=== PATIENT | female | born 1985 | race Caucasian/White ===

== ENCOUNTER 2018-09-15 08:04 | Inpatient (IN) | payer MEDICAID ==
[~2018-09-15 08:04] MED LIST: EPHEDrine 25 MG/5 ML SYG
[2018-09-15] MEDS ORDERED: OXYTOCIN 30 UNITS/LR 500 ML IV ×2 (09:00→20:00)
[2018-09-15] MEDS ORDERED: METHYLERGONOVINE 0.2 MG INJ IM ×2 (09:00→20:00)
[2018-09-15] MEDS ORDERED: CARBOPROST 250 MCG INJ IM ×2 (09:00→20:00)
[2018-09-15] MEDS ORDERED: MISOPROSTOL 200 MCG TAB PR ×2 (09:00→20:00)
[2018-09-15 09:34] LABS: ADD MAN DIFF? NO
[2018-09-15 09:37] LABS: BASOPHIL # 0.1 10^3/ul (0.0-0.1); BASOPHILS % 0.5 % (0.0-2.0); EOSINOPHILS # 0.1 10^3/ul (0.0-0.5); EOSINOPHILS % 0.9 % (0.0-7.0); HEMATOCRIT 27.6 % (37.0-47.0); HEMOGLOBIN 8.7 g/dl (12.0-16.0); LYMPHOCYTES # 2.7 10^3/ul (0.8-2.9); LYMPHOCYTES % 29.1 % (15.0-51.0); MEAN CORPUSCULAR HEMOGLOBIN 21.2 pg (29.0-33.0); MEAN CORPUSCULAR HGB CONC 31.5 g/dl (32.0-37.0); MEAN CORPUSCULAR VOLUME 67.3 fl (82.0-101.0); MEAN PLATELET VOLUME 10.3 fl (7.4-10.4); MONOCYTE # 0.7 10^3/ul (0.3-0.9); MONOCYTES % 7.4 % (0.0-11.0); NEUTROPHIL # 5.7 10^3/ul (1.6-7.5); NEUTROPHILS % 61.7 % (39.0-77.0); PLATELET COUNT 301 10^3/UL (140-415); RED CELL DISTRIBUTION WIDTH 16.8 % (11.5-14.5)
[2018-09-15 09:37] LABS: WHITE BLOOD COUNT 9.3 10^3/ul (4.8-10.8)
[2018-09-15 09:56] LABS: INR 0.91; PARTIAL THROMBOPLASTIN TIME 30.3 Sec (23.0-35.0); PROTIME 12.4 Sec (11.9-14.9)
[2018-09-15] MEDS: LACTATED RINGER'S 1,000 ML IV ×2 (09:59→14:16)
[2018-09-15 10:25] LABS: HEPATITIS B SURFACE ANTIGEN NEGATIVE (NEGATIVE)
[2018-09-15] MEDS ORDERED: morphine SULFATE/PF (10 MG/10 ML) INJ (13:46)
[2018-09-15] MEDS ORDERED: MIDAZOLAM 1 MG/ML 2 ML INJ IV (14:30)
[2018-09-15] MEDS ORDERED: MIDAZOLAM 1 MG/ML 2 ML INJ (14:30)
[2018-09-15] MEDS ORDERED: NALBUPHINE HCL (10 MG/1 ML) INJ IV (14:30)
[2018-09-15] MEDS ORDERED: NALOXONE (0.4 MG/ML) INJ IV (14:30)
[2018-09-15] MEDS ORDERED: MEPERIDINE 25 MG INJ IV (14:30)
[2018-09-15] MEDS ORDERED: DIPHENHYDRAMINE 50 MG INJ IV ×2 (14:30)
[2018-09-15] MEDS ORDERED: ZOLPIDEM 5 MG TAB PO (14:30)
[2018-09-15] MEDS ORDERED: HYDROmorphONE 0.5 MG/0.5 ML SYG IV ×2 (14:30)
[2018-09-15] MEDS ORDERED: ONDANSETRON 4 MG INJ (14:31)
[2018-09-15] MEDS ORDERED: KETOROLAC 30 MG INJ (14:53)
[2018-09-15 14:57] LABS: RAPID PLASMA REAGIN NONREACTIVE (NR)
[2018-09-15] MEDS ORDERED: OXYTOCIN 10 UNIT INJ (15:03)
[2018-09-15] MEDS: ONDANSETRON 4 MG INJ IV (16:06)
[2018-09-15] MEDS: PROMETHAZINE (1.25 MG/ML) 5 ML CUP PO (17:18)
[2018-09-15] MEDS: OXYTOCIN 30 UNITS/LR 500 ML IV ×2 (17:24→21:36)
[2018-09-15] MEDS ORDERED: METOCLOPRAMIDE 10 MG INJ (17:34)
[2018-09-15] MEDS: METOCLOPRAMIDE 10 MG INJ IV (17:39)
[2018-09-15] MEDS: CEFAZOLIN 2 GM/50 ML (PMX) 50 ML IVPB (18:07)
[2018-09-15] MEDS: DEXTROSE 5%-LR 1,000 ML IV (19:53)
[2018-09-15] MEDS ORDERED: LANOLIN HPA 1 PKT TOP (20:00)
[2018-09-15] MEDS ORDERED: METHYLERGONOVINE 0.2 MG TAB PO (20:00)
[2018-09-15] MEDS ORDERED: MAGNESIUM HYDROXIDE 30ML CUP PO (20:00)
[2018-09-15] MEDS: SENNA/DOCUSATE NA (8.6MG/50MG) TAB PO (21:00)
[2018-09-16 06:52] LABS: ADD MAN DIFF? NO
[2018-09-16] MEDS: KETOROLAC 30 MG INJ IV (06:54)
[2018-09-16] MEDS: DEXTROSE 5%-LR 1,000 ML IV ×2 (06:55→11:53)
[2018-09-16 06:57] LABS: WHITE BLOOD COUNT 10.5 10^3/ul (4.8-10.8)
[2018-09-16 06:57] LABS: BASOPHILS % 0.4 % (0.0-2.0); EOSINOPHILS # 0.1 10^3/ul (0.0-0.5); EOSINOPHILS % 0.9 % (0.0-7.0); HEMATOCRIT 24.1 % (37.0-47.0); HEMOGLOBIN 7.5 g/dl (12.0-16.0); LYMPHOCYTES # 1.8 10^3/ul (0.8-2.9); LYMPHOCYTES % 17.4 % (15.0-51.0); MEAN CORPUSCULAR HEMOGLOBIN 21.4 pg (29.0-33.0); MEAN CORPUSCULAR HGB CONC 31.1 g/dl (32.0-37.0); MEAN CORPUSCULAR VOLUME 68.7 fl (82.0-101.0); MEAN PLATELET VOLUME 10.5 fl (7.4-10.4); MONOCYTE # 0.8 10^3/ul (0.3-0.9); MONOCYTES % 7.5 % (0.0-11.0); NEUTROPHIL # 7.7 10^3/ul (1.6-7.5); NEUTROPHILS % 73.2 % (39.0-77.0); PLATELET COUNT 263 10^3/UL (140-415); RED BLOOD COUNT 3.51 10^6/ul (4.20-5.40); RED CELL DISTRIBUTION WIDTH 16.4 % (11.5-14.5)
[2018-09-16] MEDS: SENNA/DOCUSATE NA (8.6MG/50MG) TAB PO ×2 (09:20→21:00)
[2018-09-16] MEDS: HYDROCODONE/APAP (5/325) TAB NGT ×2 (15:04→18:57)
[2018-09-16] MEDS: HYDROCODONE/APAP (5/325) TAB GTB (21:50)
[2018-09-16] MEDS: IBUPROFEN 800 MG TAB PO (21:51)
[2018-09-17] MEDS: IBUPROFEN 800 MG TAB PO ×3 (05:35→21:59)
[2018-09-17] MEDS: HYDROCODONE/APAP (5/325) TAB GTB ×3 (05:36→21:58)
[2018-09-17 06:51] LABS: ADD MAN DIFF? NO
[2018-09-17 06:54] LABS: WHITE BLOOD COUNT 11.1 10^3/ul (4.8-10.8)
[2018-09-17 06:54] LABS: ABNORMAL IP MESSAGE 1; BASOPHILS % 0.4 % (0.0-2.0); EOSINOPHILS # 0.3 10^3/ul (0.0-0.5); EOSINOPHILS % 2.8 % (0.0-7.0); HEMATOCRIT 21.9 % (37.0-47.0); LYMPHOCYTES # 2.9 10^3/ul (0.8-2.9); LYMPHOCYTES % 26.2 % (15.0-51.0); MEAN CORPUSCULAR HEMOGLOBIN 21.5 pg (29.0-33.0); MEAN CORPUSCULAR HGB CONC 31.5 g/dl (32.0-37.0); MEAN CORPUSCULAR VOLUME 68.2 fl (82.0-101.0); MEAN PLATELET VOLUME 10.2 fl (7.4-10.4); MONOCYTE # 0.8 10^3/ul (0.3-0.9); MONOCYTES % 7.4 % (0.0-11.0); NEUTROPHILS % 62.5 % (39.0-77.0); PLATELET COUNT 271 10^3/UL (140-415); RED BLOOD COUNT 3.21 10^6/ul (4.20-5.40); RED CELL DISTRIBUTION WIDTH 16.5 % (11.5-14.5)
[2018-09-17 07:03] LABS: POSITIVE DIFF @See below
[2018-09-17 07:06] LABS: HEMOGLOBIN 6.9 g/dl (12.0-16.0)
[2018-09-17] MEDS: FERROUS SULFATE (EC) 325 MG TAB PO ×3 (08:38→20:52)
[2018-09-17] MEDS: SENNA/DOCUSATE NA (8.6MG/50MG) TAB PO ×2 (08:38→20:52)
[2018-09-17 09:11] LABS: IRON 24 ug/dl (35-150)
[2018-09-17 09:21] LABS: % IRON SATURATION 5 % SAT (22-52); TOTAL IRON BINDING CAPACITY 459 ug/dl (241-421)
[2018-09-17 09:48] LABS: FERRITIN 9.9 ng/ml (6.2-137.0)
[2018-09-17] MEDS: CYANOCOBALAMIN 1000 MCG INJ IM (12:57)
[2018-09-17] MEDS: SOD FERRIC GLUC COMPLX 125 MG in SOD CHLORIDE 0.9% 100 ML IVPB (12:57)
[2018-09-17] MEDS ORDERED: NACL 0.9% 3 ML SYG IV (15:30)
[2018-09-18] MEDS: IBUPROFEN 800 MG TAB PO ×2 (06:04→14:34)
[2018-09-18] MEDS: HYDROCODONE/APAP (5/325) TAB GTB ×2 (06:05→14:34)
[2018-09-18 07:13] LABS: HEMATOCRIT 22.4 % (35.0-45.0); HEMOGLOBIN 7.2 g/dL (11.7-15.5); MCH 21.2 pg (27.0-33.0); MCV 66.1 fL (80.0-100.0); RED BLOOD CELL COUNT 3.39 Million/uL (3.80-5.10)
[2018-09-18] MEDS: MEASLES,MUMPS,RUBELLA VACCINE INJ SC* (09:00)
[2018-09-18] MEDS: SENNA/DOCUSATE NA (8.6MG/50MG) TAB PO (09:54)
[2018-09-18] MEDS: FERROUS SULFATE (EC) 325 MG TAB PO ×2 (09:54→13:12)
[2018-09-18] MEDS ORDERED: SOD FERRIC GLUC COMPLX 125 MG in SOD CHLORIDE 0.9% 100 ML IVPB (11:30)
[2018-09-18] MEDS: DIPHTH/TET/ACEL PERTUSS (ADULT) 0.5 ML VIAL IM* ×2 (11:55→11:56)
[2018-09-18] MEDS: SOD FERRIC GLUC COMPLX 125 MG in SOD CHLORIDE 0.9% 100 ML IVPB (15:31)
[2018-09-19 12:06] LABS: HEMOGLOBIN A 61.2 % (>96.0); HEMOGLOBIN A2 (QUANT) 3.5 % (1.8-3.5); HEMOGLOBIN F <1.0 % (<2.0); HEMOGLOBIN S 35.3 %
== END 2018-09-18 18:45 | disposition home or self-care (01) | DRG 785 ==
LOC: L-D 08:04 → PP1 19:27
PROVIDERS: Obstetrics & Gynecology
PROC: 10D00Z1 Extraction of Products of Conception, Low, Open Approach (ICD-10-PCS; principal; 2018-09-15 11:00)
PROC: 0UB70ZZ Excision of Bilateral Fallopian Tubes, Open Approach (ICD-10-PCS; 2018-09-15 11:00)
DX: O32.8XX0 Maternal care for other malpresentation of fetus, not applicable or unspecified (principal); O99.824 Streptococcus B carrier state complicating childbirth; O99.02 Anemia complicating childbirth; D50.9 Iron deficiency anemia, unspecified; Z3A.39 39 weeks gestation of pregnancy; Z37.0 Single live birth; Z30.2 Encounter for sterilization
CPT/HCPCS: 76815; 82728; 83020; 83540; 85025; 85610; 85730; 86592; 86850; 86900; 86901; 87340; 88302; 90715; 99464